=== PATIENT | male | born 1950 | race Caucasian/White ===

== ENCOUNTER 2019-02-20 20:22 | Emergency (ER) | payer MEDICARE ==
--- NOTE | 2019-02-20 20:37 | UC ---
Cardiac HPI - HPI Summary HPI Summary: 68-year-old male comes in with chief complaint of chest pressure. Started about an hour ago. It was in the center of his chest. He rated it about 4 out of 10. His face was flushed. Denied any nausea vomiting or shortness of breath. Patient's had a heart attack back in 2014. Patient chewed 2 325 mg aspirin. Pain went away out 30 minutes prior to getting his EKG here in clinic. When he got his EKG he was chest pain-free. - History of Current Complaint Chief Complaint: UCCardiac Stated Complaint: CHEST PRESSURE Time Seen by Provider: 02/20/19 20:30 - Allergy/Home Medications Allergies/Adverse Reactions: Allergies Allergy/AdvReac Type Severity Reaction Status Date / Time No Known Allergies Allergy Verified 02/20/19 20:45 PMH/Surg Hx/FS Hx/Imm Hx Previously Healthy: Yes Endocrine History: Dyslipidemia Cardiovascular History: Hypertension, Myocardial Infarction Other History Of: Negative For: Anticoagulant Therapy - Surgical History Surgical History: Yes Surgery Procedure, Year, and Place: CARDIAC CATH 2009- [facility]. RIGHT INDEX FINGER REPAIR-[facility] [place] - Family History Known Family History: Positive: Non-Contributory - Social History Alcohol Use: Occasionally Substance Use Type: None Smoking Status (MU): Never Smoked Tobacco - Immunization History Most Recent Influenza Vaccination: NEVER Most Recent Tetanus Shot: UNK Most Recent Pneumonia Vaccination: NEVER Review of Systems All Other Systems Reviewed And Are Negative: Yes Constitutional: Positive: Other - SEE HPI Skin: Positive: Negative Eyes: Positive: Negative ENT: Positive: Negative Respiratory: Positive: Negative Cardiovascular: Positive: Chest Pain Gastrointestinal: Positive: Negative Motor: Positive: Negative Neurovascular: Positive: Negative Musculoskeletal: Positive: Negative Neurological: Positive: Negative Psychological: Positive: Negative Is Patient Immunocompromised?: No Physical Exam Triage Information Reviewed: Yes Appearance: Well-Appearing, No Pain Distress, Well-Nourished Vital Signs Reviewed: Yes Eye Exam: Normal Eyes: Positive: Conjunctiva Clear Neck: Positive: Supple Respiratory: Positive: Lungs clear, Normal breath sounds, No respiratory distress Cardiovascular: Positive: RRR Abdomen Description: Positive: Nontender Bowel Sounds: Positive: Present Musculoskeletal: Positive: Strength Intact, ROM Intact Neurological: Positive: Alert, Muscle Tone Normal Psychological: Positive: Normal Response To Family, Age Appropriate Behavior Skin Exam: Normal Diagnostics - EKG Cardiac Rate: NL - AT 2026 Cardiac Rhythm: Sinus: Normal - 77BPM Ectopy: None ST Segment: Normal - Assessment/Plan Course Of Treatment: Patient was chest pain-free in clinic. He had already taken 2 full-strength aspirin. I did not appreciate any ischemic changes on the EKG. Recommended further evaluation and care in the emergency department. Patient declined ambulance transport and preferred to go by POV. - Clinical Impression Provider Diagnosis: Chest pain Discharge ED - Sign-Out/Discharge Documenting (check all that apply): Patient Departure All imaging exams completed and their final reports reviewed: No Studies - Discharge Plan Condition: Stable Disposition: HOME-RECOMMEND TO ED Patient Education Materials: Chest Pain (ED) Referrals: Zachary Hernandez MD [Primary Care Provider] - Additional Instructions: GO DIRECTLY TO THE EMERGENCY DEPARTMENT FOR FURTHER EVALUATION FOR YOUR CHEST PAIN. - Billing Disposition and Condition Condition: STABLE Disposition: Home-Recommend to ED
[2019-02-20 20:48] VITALS: BP 153/93
== END 2019-02-20 20:53 | disposition home health service (06) ==
LOC: UCEAST 20:22
DX: R07.9 Chest pain, unspecified (principal); I10 Essential (primary) hypertension; I25.2 Old myocardial infarction
CPT/HCPCS: 93005; 99212; G0463

== ENCOUNTER 2019-02-20 20:57 | Emergency (ER) | payer MEDICARE ==
[2019-02-20 21:18] LABS: ABS Eosinophils 0.2 10^3/ul (0-0.6); ABS Lymphocytes 1.2 10^3/ul (1.0-4.8); ABS Monocytes 0.5 10^3/ul (0-0.8); ABS Neutrophils 4.1 10^3/ul (1.5-7.7); Eosinophil % 3.4 %; Hematocrit 39 % (42-52); Hemoglobin 13.6 g/dL (14.0-18.0); Lymphocyte % 19.5 %; Mean Corpuscular HGB Conc 35 g/dL (31-36); Mean Corpuscular Hemoglobin 33 pg (27-31); Mean Corpuscular Volume 94 fL (80-94); Platelet Count 176 10^3/uL (150-450); Red Blood Count 4.14 10^6 /uL (4.18-5.48); Red Cell Distribution Width 13 % (10-15)
[2019-02-20 21:36] LABS: Albumin 3.8 g/dL (3.2-5.2); Albumin/Globulin Ratio 1.3 (1-3); BUN/Creatinine Ratio 18.3 (8-20); Calcium 9.2 mg/dL (8.6-10.3); EGFR Non-African American 54.6 (>60); Globulin 2.9 g/dL (2-4); INR 1.02 (0.82-1.09); Potassium 3.4 mmol/L (3.5-5.0); Total Bilirubin 0.5 mg/dL (0.2-1.0); Total Protein 6.7 g/dL (6.4-8.9)
--- NOTE | 2019-02-20 21:47 | ED ---
HPI Chest Pain - HPI Summary HPI Summary: This patient is a 68 year old male presenting to [facility] with a chief complaint of chest pain. He states when he took one bite of dinner he started to feel a pressure in his chest. He states he had a mild IL here in 2014 so he grew concerned and came here. He states he took 81 mg of Aspirin and it did not help. After 45 mins he took another one and [facility] By the time he was in the car to seek [facility], and then he came here. He states just now he feels like it is esophageal, stating he feels like he swallowed a big pill. He states it does not hurt to swallow and none of the symptoms felt the same as his IL. He states he had a regular day today, he played pickleball in the morning and had a bowl of soup for lunch. He states he felt hot. He denies nausea. He states when he was having chest pain it was 4/10 in severity. - History of Current Complaint Chief Complaint: EDChestPainROMI Time Seen by Provider: 02/20/19 21:41 Hx Obtained From: Patient Onset/Duration: Started Hours Ago Pain Intensity: 4 Pain Scale Used: 0-10 Numeric Chest Pain Location: Mid Sternal Chest Pain Radiates: No - Allergy/Home Medications Allergies/Adverse Reactions: Allergies Allergy/AdvReac Type Severity Reaction Status Date / Time No Known Allergies Allergy Verified 02/20/19 21:12 Home Medications: Home Medications Aspirin EC TAB* [Ecotrin EC Low Dose 81 MG*] 81 mg PO DAILY 02/20/19 [History Confirmed 02/20/19] lisinopriL [Lisinopril] 40 mg PO DAILY 02/20/19 [History Confirmed 02/20/19] PMH/Surg Hx/FS Hx/Imm Hx Endocrine/Hematology History: Denies: Hx Anticoagulant Therapy, Hx Blood Disorders, Hx Blood Transfusions, Hx Bone Marrow Disease, Hx Diabetes, Hx Systemic Lupus Erythematosus, Hx Sickle Cell Disease, Hx Thyroid Disease, Hx Anemia, Hx Unexplained Bleeding, Other Endocrine/Hematological Disorders Cardiovascular History: Reports: Hx Coronary Artery Disease - MILD 2010 CATH, Hx Hypercholesterolemia - TAKES STATIN, Hx Hypertension Denies: Hx Aneurysm, Hx Angina, Hx Angioplasty, Hx Auto Implanted Cardiovert Defib, Hx Cardiac Arrest, Hx Cardiomegaly, Hx Congenital Heart Disease, Hx Congestive Heart Failure, Hx Deep Vein Thrombosis, Hx Embolism, Hx Hypotension, Hx Pacemaker/ICD, Hx Peripheral Vascular Disease, Hx Rheumatic Fever, Hx Syncope , Hx Valvular Heart Disease, Other Cardiovascular Problems/Disorders Respiratory History: Reports: Hx Sleep Apnea - DX BUT NO INTERVENTIONS Denies: Hx Asthma, Hx Chronic Bronchitis, Hx Chronic Obstructive Pulmonary Disease (COPD), Hx Cystic Fibrosis, Hx Lung Cancer, Hx Pleural Effusion, Hx Pneumonia, Hx Pulmonary Edema, Hx Pulmonary Embolism, Hx Seasonal Allergies, Other Respiratory Problems/Disorders GI History: Denies: Hx Cirrhosis, Hx Crohn's Disease, Hx Diverticulosis, Hx Gall Bladder Disease, Hx Gastroesophageal Reflux Disease, Hx Gastrointestinal Bleed, Hx Hiatal Hernia, Hx Irritable Bowel, Hx Jaundice, Hx Obstructive Bowel, Hx Ileostomy, Hx Pyloric Stenosis, Hx Ulcer, Other GI Disorders History: Denies: Hx Acute Renal Failure, Hx Benign Prostatic Hyperplasia, Hx Chronic Renal Failure, Hx Dialysis, Hx Kidney Infection, Hx Kidney Stones, Other Problems/Disorders Musculoskeletal History: Reports: Hx Gout - ONCE IN MAR 2013 Denies: Hx Arthritis, Hx Back Problems, Hx Bursitis, Hx Congenital Bone Abnormalities, Hx Fibromyalgia, Hx Orthopedic Injury, Hx Osteoporosis, Hx Scoliosis, Hx Tendonitis, Other Musculoskeletal History Sensory History: Reports: Hx Cataracts - IN ONE EYE, "NOT BAD NO INTERVENTIONS YET", Hx Contacts or Glasses Denies: Hx Eye Injury, Hx Eye Prosthesis, Hx Glaucoma, Hx Legally Blind, Hx Macular Degeneration, Hx Vision Problem, Hx Hearing Aid, Hx Hearing Problem, Other Sensory Impairments Opthamlomology History: Reports: Hx Cataracts - IN ONE EYE, "NOT BAD NO INTERVENTIONS YET", Hx Contacts or Glasses Denies: Hx Eye Injury, Hx Eye Prosthesis, Hx Glaucoma, Hx Legally Blind, Hx Macular Degeneration, Hx Vision Problem, Other Sensory Impairments Neurological History: Denies: Hx Dementia, Hx Developmental Delay, Hx Headaches, Hx Migraine, Hx Nerve Disease, Hx Seizures, Hx Spinal Cord Injury, Hx Transient Ischemic Attacks (TIA), Other Neuro Impairments/Disorders Psychiatric History: Denies: Hx Anxiety, Hx Attention Deficit Hyperactivity Disorder, Hx Eating Disorder, Hx Depression, Hx Panic Disorder, Hx Post Traumatic Stress Disorder, Hx Inpatient Treatment, Hx Community Mental Health Tx, Hx Schizophrenia, Hx Bipolar Disorder, Hx Suicide Attempt, Hx of Violent Episodes Against Others, Hx Substance Abuse, Other Psychiatric Issues/Disorders - Surgical History Surgery Procedure, Year, and Place: CARDIAC CATH 2009- [facility]. RIGHT INDEX FINGER REPAIR-[facility] [place] Hx Anesthesia Reactions: No Infectious Disease History: No Infectious Disease History: Denies: Hx Hepatitis, Hx of Known/Suspected MRSA, Hx Tuberculosis, Traveled Outside the [place] in Last 30 Days - Family History Known Family History: Negative: Renal Disease - Social History Occupation: Retired Alcohol Use: Occasionally Substance Use Type: Reports: None Smoking Status (MU): Never Smoked Tobacco Review of Systems Positive: Other - Hot feeling Positive: Other - Esophogeal discomfort Positive: Chest Pain Negative: Nausea All Other Systems Reviewed And Are Negative: Yes Physical Exam - Summary Physical Exam Summary: Appearance: Well-appearing, Well-nourished, lying in bed comfortably Skin: Warm, dry, no obvious rash Eyes: sclera anicteric, no conjunctival pallor ENT: mucous membranes moist, pharynx appears normal Neck: Supple, nontender Respiratory: Clear to auscultation, no signs of respiratory distress Cardiovascular: Normal S1, S2. No murmurs. Normal distal pulses in tibial and radial bilaterally. Abdomen: Soft, nontender, normal active bowel sounds present Musculoskeletal: Normal, Strength/ROM Intact Neurological: A&Ox3, awake and alert, mentation is normal, speech is fluent and appropriate Psychiatric: affect is normal, does not appear anxious or depressed Triage Information Reviewed: Yes Vital Signs On Initial Exam: Initial Vitals Temp Pulse Resp BP Pulse Ox 98.3 F 70 15 165/112 96 02/20/19 21:10 02/20/19 21:10 02/20/19 21:10 02/20/19 21:10 02/20/19 21:10 Vital Signs Reviewed: Yes Procedures - Sedation Patient Received Moderate/Deep Sedation with Procedure: No Diagnostics - Vital Signs Vital Signs Temp Pulse Resp BP Pulse Ox 02/20/19 21:10 98.3 F 70 15 165/112 96 - Laboratory Lab Results: Lab Results 02/20/19 02/20/19 02/20/19 Range/Units 21:09 21:09 21:09 WBC 6.0 (3.5-10.8) 10^3/uL RBC 4.14 L (4.18-5.48) 10^6 /uL Hgb 13.6 L (14.0-18.0) g/dL Hct 39 L (42-52) % MCV 94 (80-94) fL MCH 33 H (27-31) pg MCHC 35 (31-36) g/dL RDW 13 (10-15) % Plt Count 176 (150-450) 10^3/uL MPV 8.0 (7.4-10.4) fL Neut % (Auto) 67.9 % Lymph % (Auto) 19.5 % Brooke % (Auto) 8.8 % Eos % (Auto) 3.4 % Baso % (Auto) 0.4 % Absolute Neuts (auto) 4.1 (1.5-7.7) 10^3/ul Absolute Lymphs (auto) 1.2 (1.0-4.8) 10^3/ul Absolute Monos (auto) 0.5 (0-0.8) 10^3/ul Absolute Eos (auto) 0.2 (0-0.6) 10^3/ul Absolute Basos (auto) 0.0 (0-0.2) 10^3/ul Absolute Nucleated RBC 0.0 10^3/ul Nucleated RBC % 0.0 INR (Anticoag Therapy) 1.02 (0.82-1.09) Sodium 140 (135-145) mmol/L Potassium 3.4 L (3.5-5.0) mmol/L Chloride 105 (101-111) mmol/L Carbon Dioxide 29 (22-32) mmol/L Anion Gap 6 (2-11) mmol/L BUN 24 (6-24) mg/dL Creatinine 1.31 H (0.67-1.17) mg/dL Est GFR ( Amer) 66.0 (>60) Est GFR (Non-Af Amer) 54.6 (>60) BUN/Creatinine Ratio 18.3 (8-20) Glucose 85 (70-100) mg/dL Calcium 9.2 (8.6-10.3) mg/dL Total Bilirubin 0.50 (0.2-1.0) mg/dL AST 33 (13-39) U/L ALT 27 (7-52) U/L Alkaline Phosphatase 95 (34-104) U/L Troponin I 0.00 (<0.03) ng/mL Total Protein 6.7 (6.4-8.9) g/dL Albumin 3.8 (3.2-5.2) g/dL Globulin 2.9 (2-4) g/dL Albumin/Globulin Ratio 1.3 (1-3) Result Diagrams: 02/20/19 21:09 02/20/19 21:09 Lab Statement: Any lab studies that have been ordered have been reviewed, and results considered in the medical decision making process. - EKG 210 Cardiac Rate: NL - 73 BPM EKG Rhythm: Sinus Rhythm Summary of EKG Findings: No STEMI. ED Physician has reviewed and interpreted this EKG. Chest Pain Course/Dx - Course Course Of Treatment: This patient is a 68 year old male presenting to [facility] with a chief complaint of chest pain. Labs reveal RBC 4.14 L, Hgb 13.6 L, Hct 39 L, MCH 33 H, Potassium 3.4 L, Creatinine 1.31 H. Troponin I is negative. EKG was unremarkable. Plan for discharge was discussed with the patient and he was agreeable with this plan. - Diagnoses Provider Diagnoses: Chest pain Discharge ED - Sign-Out/Discharge Documenting (check all that apply): Patient Departure - Discharge - Discharge Plan Condition: Good Disposition: HOME Patient Education Materials: Chest Pain (ED) Referrals: Dalton Zapien MD [Medical Doctor] - Additional Instructions: Your workup tonight did not show any evidence of a heart condition causing your symptoms. It is safe to discharge you tonight, but I would recommend a followup visit with your acid plant helper in the next week. They may want to run further tests on you. - Billing Disposition and Condition Condition: GOOD Disposition: Home - Attestation Statements Document Initiated by Jack: Yes Documenting Rosalieibe: Joe Minaya Provider For Whom Jack is Documenting (Include Credential): MD Rosalie Bacaibjose Attestation: Joe Vega, scribed for Clive Ramos MD on 02/21/19 at 0554. Scribe Documentation Reviewed: Yes Provider Attestation: The documentation as recorded by the Joe fatima accurately reflects the service I personally performed and the decisions made by me, Clive Ramos MD Status of Scribe Document: Viewed
[2019-02-21 00:36] VITALS: BP 164/90
== END 2019-02-21 01:09 | disposition home or self-care (01) ==
LOC: ED 20:57
DX: R07.9 Chest pain, unspecified (principal); Z79.82 Long term (current) use of aspirin; I25.10 Atherosclerotic heart disease of native coronary artery without angina pectoris; Z95.5 Presence of coronary angioplasty implant and graft; E78.00 Pure hypercholesterolemia, unspecified; I10 Essential (primary) hypertension
CPT/HCPCS: 36415; 80053; 84484; 85025; 85610; 93005; 99282